=== PATIENT | female | born 1965 | race Caucasian/White ===

== ENCOUNTER → 2021-01-06 | Outpatient (CLI) | payer BC ==
[~2021-01-06] MED LIST: ISOVUE-300 61% 50ML VIAL As Ordered ONE; LIDOCAINE 1% MDV 20ML VIAL As Ordered ONE; TRIAMCINOLONE ACETONIDE SUSP 40 MG/ML VIAL (J3301) As Ordered ONE
--- NOTE | 2021-01-07 16:18 | REP ---
INDICATION: OA OF LT SHOULDER. COMPARISON: None. TECHNIQUE: The procedure was performed under the direct supervision of Dr. Orozco. The benefits and risks including but not limited to pain infection bleeding and anaphylaxis were explained to the patient and informed consent was obtained. The left glenohumeral joint space was localized using fluoroscopic guidance. The skin was prepped and draped in a sterile fashion. 1% lidocaine was used as a local anesthetic. Using fluoroscopic guidance, and last image hold technology, a 22 gauge needle was inserted and advanced into the joint. 1 mL of Isovue-300 was injected to verify placement. 6 mL of a solution containing 5 mL of 1% lidocaine and 1 mL of Kenalog 40 mg was injected. The needle was then removed. The patient tolerated the procedure well and there were no immediate complications. Less than 6 seconds of fluoroscopy time was utilized for this procedure. FINDINGS: None IMPRESSION: Fluoro guidance for left shoulder injection. <Electronically signed by Hubert Wells > 01/07/21 1501 <Electronically signed by Luis Oroczo > 01/07/21 1113
== END ==
LOC: M RADPRO 10:51
PROVIDERS: ATTEND Orthopaedic Surgery
DX: M19.012 Primary osteoarthritis, left shoulder (principal)
CPT/HCPCS: 20610; 77002; J3301; Q9967